=== PATIENT | male | born 1990 | race Caucasian/White ===

== ENCOUNTER → 2020-01-09 | Outpatient (CLI) | payer OTHER | LOC: CAT 13:15 | DX: Z13.6 Encounter for screening for cardiovascular disorders (principal); I25.10 Atherosclerotic heart disease of native coronary artery without angina pectoris; E78.00 Pure hypercholesterolemia, unspecified ==

== ENCOUNTER → 2020-01-23 | Outpatient (CLI) | payer BC, OTHER ==
[~2020-01-23] VITALS: Ht 167.6 cm; Wt 142.9 kg
[~2020-01-23] MED LIST: ASA81BEC PO; COZAAR 25 MG TA25 M2 PO; CRESTOR10 MG PO; METOPROLOL SUCC25 M1 PO; NORVASC 2.5 MG2.5 M1 PO; PAXIL20 MG PO; PROAIR HFA8.5 GM INH; XANAX 0.5 MG0.5 M1 PO
[2020-01-23 08:17] VITALS: BP 128/68
[2020-01-23 08:52] LABS: HEMATOCRIT 42.1 % (42.0-52.0); HEMOGLOBIN 14.7 gm/dL (14.0-18.0); MCH 29.3 pg (26.0-34.0); MCHC 34.9 g/dL (28.0-37.0); RBC 5.02 mil/uL (4.50-6.00); RDW 13.5 % (10.5-14.5); WBC 9.4 thou/uL (4.0-11.0)
[2020-01-23 08:55] LABS: CALCIUM 9.1 mg/dL (8.5-10.1); CREATININE 1.2 mg/dL (0.7-1.3); POTASSIUM 3.9 mmol/L (3.5-5.1)
--- NOTE | 2020-01-24 07:52 | EKG ---
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
--- NOTE | 2020-01-24 16:57 | CATHLAB ---
[facility] [place] [address] INVASIVE PROCEDURE REPORT Name: NATI FRIEDMAN Room #: ROVERTO [facility]no[facility]#: [id number] Admission: 01/23/20 Attend Phys: Greg Urias MD, Discharge: Date of : 86 Report #: [id number] THIS REPORT FOR: cc: FAM - Family physician unknown FAM - Family physician unknown Greg Urias MD [facility] ~ APPROVED REPORT Study performed: 01/23/2020 09:26:31 Patient Details Patient Status: Out-Patient Room #: The patient is a 29 year-old male Event Personnel Greg Urias [employer], Reynaldo Vasquez RN RN, Liudmila Bailey RTR Monitor, Juana Blair RTR, 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 A PINNACLE 6FR Sheath #[id number] sheath was inserted into the RFA^. Coronary angiography was performed using coronary diagnostic catheters. The right coronary system was accessed and visualized with a JR4 catheter. The left coronary system was accessed and visualized with a JL4 catheter. The left ventricle was accessed and visualized with a PIGTAIL catheter. Left ventriculogram was performed in 30 degree projection. Closure device was deployed with a Fr MYNXGRIP 6/7F #[id number]. The patient tolerated the procedure well and there were no complications associated with the procedure. There was no hematoma. Intraoperative Conscious Sedation Sedation start time: 10:02 Case end Time: 10:29 Fentanyl 100 mcg Versed 4 mg Fluoro Time: 3.70 minutes Dose: DAP 22945.30 cGycm2 1414 mGy [facility] [address] [place] [address] INVASIVE PROCEDURE REPORT Name: NATI FRIEDMAN Room #: REG [facility]#: [id number] Admission: 01/23/20 Attend Phys: Greg Urias, Discharge: Date of : 86 Report #: [id number] Contrast Type and Amount: Omnipaque 95 ml Hemodynamics The aortic pressure is 92/48 mmHg with a mean of 56 mmHg. The left ventricular pressure is 103/18 mmHg with a mean of mmHg. The left ventricular end diastolic pressure is 30 mmHg. Conclusion 1. Normal left ventricular size and systolic function EF 60% #2 normal coronary anatomy in a right dominant system. No evidence of occlusive disease. #3 selective bilateral renal angiography reveals wide patency of these renal arteries. Recommendations and plan: Continue aggressive risk factor modification. There is no indication for coronary intervention. Normal coronary anatomy is found. Etiology of chest pain is noncardiac. <ELECTRONICALLY SIGNED> By: Greg Urias MD, FACC 01/24/201656 56 56 Greg Urias MD, FACC /INF
== END | disposition home or self-care (01) ==
LOC: CATH 07:42
PROVIDERS: ATTEND Internal Medicine Cardiovascular Disease
DX: R07.9 Chest pain, unspecified (principal); R53.83 Other fatigue; I10 Essential (primary) hypertension; E78.5 Hyperlipidemia, unspecified; F41.9 Anxiety disorder, unspecified; K21.9 Gastro-esophageal reflux disease without esophagitis; F17.220 Nicotine dependence, chewing tobacco, uncomplicated; Z98.890 Other specified postprocedural states; Z79.899 Other long term (current) drug therapy; Z79.82 Long term (current) use of aspirin